=== PATIENT | male | born 2000 | race Caucasian/White ===

== ENCOUNTER 2020-01-07 05:57 | Day surgery (SDC) | payer SELFPAY, OTHER ==
[2020-01-07] VITALS (7 sets, daily range): BP systolic 129–142; BP diastolic 51–78; PULSE 48–80; RESP 16–18; TEMP 36.4–36.9; O2SAT 99–100; BMI 21.9
[2020-01-07] MEDS: Lactated Ringers 1,000 ML 100 ML IV ×2 (07:02→10:28)
[2020-01-07] MEDS: Cefazolin 2 GM in 0.9% Normal Saline 100 ML IV (07:33)
--- NOTE | 2020-01-07 07:45 | RAD_ITS ---
STUDY: X-RAY - RIGHT ANKLE REASON FOR EXAM: Male, 19 years old. ORIF RIGHT ANKLE TECHNIQUE: 3 view(s) of the ankle. COMPARISON: None. FINDINGS: Intraoperative imaging provided for ORIF of the distal fibula. RAD/Ankle min 3 Views IMPRESSION: Intraoperative imaging provided for ORIF of the distal fibula. Electronically Signed: Alex Das, at 13:15 EDT , Service support ,
--- NOTE | 2020-01-07 09:25 | PCM.DC.ORTHO ---
Discharge Diet: Light diet - advance as tolerated Discharge Activity: May Not Shower, Use Walker, Use Crutches Weight Bearing Status: No weight bearing Keep extremity elevated above heart level: Right Leg Additional Activity Instructions:: 1. Keep dressing to right leg clean, dry, intact. Do not get dressing wet. Do not remove dressing. If get dressing wet, call office for further instructions. I recommend sponge bathing only at this time. 2. Ice around right knee 30 minutes every hour as needed for pain. 3. Elevate right foot above level of heart as often as possible until further instructed. 4. Do not place any pressure or weight on right foot. Use crutches/walker/wheelchair as needed for assistance. 5. Begin taking tramadol (pain medication) today, January 07, 2020 as needed. May take 1 to 2 tablets every 4-6 hours as needed for the pain. 6. You may supplement the tramadol medication with extra strength Tylenol (acetaminophen). Please do not take more than 3000 mg of Tylenol (Acetaminophen) in a 24-hour period. 7. After taking tramadol, wait approximately 3 hours, and can take the Tylenol (Acetaminophen) then. After your Tylenol (Acetaminophen) dose, wait approximately 3 hours, and take tramadol again as needed. Switch between the medications every 3 hours as needed. 8. begin taking doxycycline (antibiotic) tomorrow, January 08, 2020 twice a day as instructed. 9. Taking aspirin 81mg tomorrow, January 08, 2020 twice a day as instructed. 10. Follow-up in the [place] office on Tuesday, December 24, 2019 as previously scheduled. 11. Call with any questions or concerns Call your doctor if your incision/area has: Sudden Increased Bleeding, Increased Pain/ Swelling Call your doctor if you observe: Fever of 101 or Higher, Coldness, Increased Pain, Shortness of breath, Chest pain, Increased palpitations (irregular heartbeat), Calf discomfort, Uncontrolled pain Cleanse incision/area with: Keep Dressing Clean & Dry Allergies/Adverse Reactions: Allergies acetaminophen [From Percocet] Adverse Reaction (Verified 01/07/20 06:40) Nausea/Vom/Diarrhea oxycodone [From Percocet] Adverse Reaction (Verified 01/07/20 06:40) Nausea/Vom/Diarrhea Medications to take at Discharge Naproxen Sodium [Aleve] 220 mg PO PRN PRN 12/31/19 traMADol [Ultram (G)] 1 - 2 mg PO Q6H PRN PRN 01/07/20 Primary Care Physician: Ami Cooper MD [Primary Care Provider] - Test Results: Test results from this visit will be discussed in further detail at your follow-up appointment, if applicable. Please Follow Up With: Deondre Rob DPM When: in one week as previously scheduled in [facility] Proposed Discharge Date: 01/07/20
--- NOTE | 2020-01-07 09:34 | PCM.OPRPT ---
Problem List (1) Ankle syndesmosis disruption Status: Acute Qualifiers: Encounter type: initial encounter Laterality: right Qualified Code(s): S93.431A - Sprain of tibiofibular ligament of right ankle, initial encounter (2) Fracture of ankle, bimalleolar, right, closed Status: Acute Qualifiers: Encounter type: initial encounter Qualified Code(s): S82.841A - Displaced bimalleolar fracture of right lower leg, initial encounter for closed fracture Report of Operation Date of Procedure: 01/07/20 Pre-Operative Diagnosis: 1. Right ankle bimalleolar fracture, closed, displaced. 2. Right ankle syndesmosis disruption Post-Operative Diagnosis: Same as preoperative Surgery/Procedure Performed:: 1. Right ankle open reduction with internal fixation of bimalleolar fracture. 2. Right ankle open reduction with internal fixation of syndesmosis Description of Surgical Findings:: Consistent with diagnosis. Reduction of deformity achieved and held with internal fixation associate account manager: Celeste Berman NP Type of Anesthesia:: General/Regional - With a popliteal and saphenous block given to the right lower extremity Anesthesiologist: Se Short Special Medications: 2 g of Ancef given preoperatively Specimen's removed: None Drains: None Estimated Blood Loss (mL): 25 Description of Procedure: Hemostasis: Pneumatic thigh tourniquet placed at the level of the right thigh at 275 mmHg for 80 minutes Estimated blood loss: 25 mL Materials: #1. Arthrex tight rope. 2. Arthrex 7 hole recon plate. 3. Arthrex 3.5 x 18 mm cortical screw. 4. Arthrex 3.5 x 14 mm cortical screw. 5. Arthrex 3.5 x 12 mm locking screw. 6. Arthrex 3.5 x 14 mm locking screw. 7. Size 0 Vicryl. 8. Size 2-0 Vicryl. 9. Size 3-0 Vicryl. 10. Size 3-0 nylon. Injectables: 5 mL of 0.5% Marcaine plain given in a proximal saphenous nerve block fashion Complications: None Condition: Stable Indications: Patient is a 19-year-old male with no significant past medical history who suffered a right ankle injury on December 27, 2019. He was at home and playing football with his friends. During the game, he suffered the injury to his right ankle. Patient was initially seen in my office by Celeste Berman, nurse practitioner, on December 28, 2019. Conservative and surgical interventions were discussed with the patient at that time, and surgical intervention was recommended due to the injury that was present. Patient was agreeable at that time. A preoperative CT scan was ordered, and patient was instructed to see me in my office yesterday, January 06, [address] scan, surgical plan, and to check for the right ankle swelling. I saw the patient yesterday, January 06, 2020, where went over the CT scan revealing a comminuted displaced oblique fibular fracture, a posterior malleolus fracture, and syndesmosis widening. The cartilage of the ankle joint was deemed intact and the medial malleolus was intact as well. I discussed with the patient that he has what is called a bimalleolar fracture, and a syndesmosis injury. I discussed these terms in detail. I discussed conservative and surgical intervention with the patient at that time. Conservative therapy would include a period of nonweightbearing and a below the knee cast with transition to a pneumatic cam boot. I discussed the risks and benefits of conservative therapy, including but not limited to delayed or nonhealing bone, DVT, continued pain, early onset arthritis, decreased function of limb. I discussed surgical intervention, which would include an open reduction with internal fixation of the bimalleolar fracture and open reduction with internal fixation of the syndesmosis. I discussed the risks and benefits of surgical intervention, including but not limited to delayed or nonhealing wounds, delayed or nonhealing bone, DVT, infection, decreased function of limb, continued pain, damage to surrounding structures, loss of limb, loss of life. All the patient's questions were answered to his satisfaction and all of his concerns were addressed. No guarantees were made as to the outcome of the procedure. Due to the injury that was present, I recommended surgical intervention. Patient was agreeable to proceed with surgical intervention. Due to the reduction in edema, surgery was scheduled for today, January 07, 2020. Operative report: Before the patient was brought into the operating room, I discussed the risks and benefits of surgical intervention once again. These include but not limited to delayed or nonhealing wounds, delayed or nonhealing bone, DVT, infection, decreased function of limb, continued pain, damage to surrounding structures, loss of limb, loss of life. All the patient questions were answered to his satisfaction and all of his concerns were addressed. No guarantees were made as to the outcome of the procedure. Due to the injury that was present, I recommended surgical intervention. Patient was agreeable to proceed with surgical intervention, and consent was then signed by the patient. Patient was then brought to the operating room and placed on the operating table in the supine position. After a timeout, the anesthesiologist administered a popliteal block to the right lower extremity. Afterwards, general anesthesia was obtained, anesthesia took control of the airway and the IV access. Pre-operative antibiotics were given. Care was taken make sure that adequate padding was placed in all pressure points. Next, a well-padded pneumatic thigh tourniquet was placed to the level of the right thigh. The right foot, ankle, leg were then scrubbed, prepped, draped in the usual sterile manner. Attention was then directed to the lateral aspect of the right ankle. At this time, radiographic evaluation was used to determine the distal tip of the lateral malleolus, level of the fibular fracture, level of the ankle joint, and level of the syndesmosis. These were all marked on the patient. Next, the right foot, ankle, leg were then elevated and exsanguinated via Esmarch and inflation pneumatic thigh tourniquet was performed to 275 mmHg. Attention was then directed back to the lateral aspect of the right ankle in the area of the fibula. At this time, a #15 blade was used to perform a linear longitudinal incision starting at the lateral aspect of the distal one third of the fibular shaft extending distally to the distal tip of the lateral malleolus. This incision was deepened utilizing sharp and blunt dissection. Care was taken to retract all vital neural and vascular structures. All bleeders were cauterized and ligated as necessary. Next, a linear periosteal and capsular incision was made in line with the original skin incision. The periosteal and capsular structures were then reflected anteriorly and posteriorly, thus exposing the fibula and the fracture at the operative site. At this time, a curette was used to remove any fibrous tissue contained within the fracture site. Fracture site was irrigated with copious amounts of normal sterile saline. Next, the fracture was reduced and held via temporary fixation. Radiograph evaluation was then performed. The fibula was noted to be out the length at this time. The fracture was noted to be reduced when compared to preoperative assessment. The fibula appeared to be back in anatomical position. At this time, the Arthrex 3.5 cortical screw was placed as perpendicular to the fracture as possible and inserted in standard AO fixation to assist in interfragmentary compression. Of note during insertion of the screw was the adequate compression of the fibular fracture. Furthermore, no shifting of the fibular fracture occurred during insertion of the screw. Once the screw was fully inserted, temporary fixation was then removed. Radiograph evaluation was then performed. The fibula was noted to be out to length at this time. The interfragmentary screw was noted to hold the fibula and the fracture in the correct the reduced position. The screw was noted to neither be too long or too short. At this time, the Arthrex 7 hole recon plate was placed over the lateral aspect of the fibula and held via temporary fixation. Radiograph evaluation was performed to determine adequate positioning of the fibula plate. Once this was had, this was affixed to the lateral aspect of the fibula via a mixture of nonlocking and locking screws. Of note during insertion of the screws was the adequate compression of the plate to the bone. Furthermore, no shifting any of the fractures or the fragments occurred during insertion of the screws. Care was taken make sure that the screw hole for the syndesmosis tight rope was left open intentionally. Care was also taken to make sure that there were 3 points of fixation above the interfragmentary screw and 3 points of fixation below the interfragmentary screw. Once the screws were fully inserted, all temporary fixation was removed. Radiograph evaluation was then performed. The fibular plate was noted to hold the fibula in the correct the reduced position. It was deemed that there would be 3 points of fixation above the fragmentary screw and 3 points of fixation below the interfragmentary screw. This time, live radiographic evaluation was used to perform the cotton and hook test. Widening of the syndesmosis was noted along with instability. It was then determined that this would need to be fixed via the Arthrex tight rope. In the fibular plate a hole that correlated with the level of the syndesmosis, the K wire for the drill was inserted from lateral to medial and 30 degrees posterior to anterior to reenact the syndesmosis. Once this K wire was inserted, radiograph evaluation was performed to make sure this was in adequate position. Once this was in adequate position, this was then drilled, and the K wire was then removed. The Arthrex tight rope was then inserted in standard fashion. With the foot held in a forced dorsiflexed position, the syndesmosis was reduced, and the tight rope was tightened down in standard fashion. Once adequate tightening was performed, reduction of the syndesmosis was released. Radiograph evaluation was then performed. An increase of the tibiofibular overlap was noted when compared to preoperative assessment. A decrease in the medial ankle joint space was noted. The fibula was noted to be out to length at this time. At this time, the cotton and hook test were performed once again under live radiographic evaluation. The syndesmosis was deemed stable at this time. At this time, live radiograph evaluation was used to assess the posterior malleolus. This was deemed small, and less than 10% of the articulating surface of the ankle. Furthermore, it was reduced when compared to preoperative assessment. Due to this, it was determined that internal fixation would not be needed. Radiograph evaluation was then performed once again. The fibula was noted to be out to length at this time and held in this place via the internal fixation. All screws were noted to not to be too long or too short. The syndesmosis was noted to be reduced when compared to preoperative assessment and held via the Arthrex tight rope. The ankle joint appeared to be back in anatomic position. The surgical site was then irrigated with copious amounts of normal sterile saline. The periosteal and capsular structures were then reapproximated and coapted utilizing size 0 Vicryl and size 2-0 Vicryl. The pneumatic thigh tourniquet was then released and a prompt hyperemic response was noted to the entirety of the right lower extremity. all bleeders were cauterized and ligated as necessary. The subcutaneous tissue was reapproximated and coapted utilizing size 2-0 Vicryl and 3-0 Vicryl. The skin was reapproximated and coapted utilizing size 3-0 nylon in a simple interrupted and horizontal mattress fashion. At this time, 5 mL of 0.5% bupivacaine plain was distributed in a proximal saphenous nerve block fashion in the area of the tibial tuberosity. The surgical site was then dressed with Betadine soaked gauze, and dry sterile dressing setting of 4 x 4 gauze, ABD pads, wrapped with Kerlix. The right foot and ankle were then wrapped with an Benedict bandage. Next, a stockinette was placed over the right lower extremity. Cast padding was wrapped from the metatarsal heads extending proximally to a level just distal to the tibial tuberosity. A posterior splint was fashioned to the right lower extremity and was adhered to the right lower extremity utilizing Benedict bandages. Care was taken make sure that the foot and ankle were held in neutral position as the posterior splint dried. Neurovascular status was assessed at the end of the application and deemed intact to the right lower extremity. The patient tolerated the anesthesia and the procedure well and was transported to the PACU with vital signs stable and neurovascular status intact to the right lower extremity. After period of postoperative monitoring, patient will be discharged home with written and oral instructions for wound care and follow-up. The surgical services asst, the nurse practitioner, was utilized throughout the entire procedure. She helped with patient positioning, holding of limb, holding of retractors. She helped with exposure throughout. She helped with bandage application, and cast application. Without the surgical services asst, surgical time would have been increased and surgical outcome could have been less optimal. - Complications None - Admit VTE Documentation VTE Present on Admission: No VTE Mechan Device Prophylaxis: SCD's - With postoperative DVT prophylaxis given at 81 mg of aspirin twice a day VTE Pharm Prophylaxis ordered?: Yes
[2020-01-07] MEDS: Bupivacaine 0.5% PF 10 ML VIAL (09:36)
--- NOTE | 2020-01-07 10:35 | RAD_ITS ---
STUDY: X-RAY - RIGHT ANKLE REASON FOR EXAM: Male, 19 years old. s/p ORIF right ankle TECHNIQUE: 3 view(s) of the ankle. COMPARISON: Comparison is made with prior examination of earlier in the day. FINDINGS: The patient status post ORIF of the distal fibula using screw and plate fixation. Normal medial and lateral malleoli. Normal tibiotalar articulation and ankle mortise. Normal visualized talus and calcaneus. The visualized subtalar, talonavicular, calcaneocuboid and tarsal articulations are normal. Postoperative soft tissue changes. RAD/Ankle min 3 Views IMPRESSION: Status post ORIF of the distal fibular utilizing screw and sideplate fixation device. Electronically Signed: Alex Das, at 15:29 EDT , Service support ,
== END 2020-01-07 12:07 | disposition home or self-care (01) ==
LOC: SDC 06:04 → AC 06:04
PROVIDERS: Referring Provider Podiatrist Foot & Ankle Surgery; Visit Provider Podiatrist Foot & Ankle Surgery
DX: S82.841A Displaced bimalleolar fracture of right lower leg, initial encounter for closed fracture (principal); S93.431A Sprain of tibiofibular ligament of right ankle, initial encounter; X58.XXXA Exposure to other specified factors, initial encounter; Y93.61 Activity, american tackle football; Y92.9 Unspecified place or not applicable
CPT/HCPCS: 01480; 27814; 27829; 73610; 76000; C1713; J7120; J2405